=== PATIENT | female | born 1970 | race Caucasian/White ===

== ENCOUNTER 2023-04-22 12:43 | Emergency (ER) | payer OTHER ==
[~2023-04-22] VITALS: Ht 172.7 cm; Wt 70.3 kg
[2023-04-22 12:49] VITALS: O2SAT 99
== END 2023-04-22 17:17 | disposition left against medical advice (07) ==
LOC: ER 12:43
DX: H92.02 Otalgia, left ear (principal)
CPT/HCPCS: A4606; A4663